=== PATIENT | male | born 1990 | race Caucasian/White ===

== ENCOUNTER 2018-10-07 20:13 | Emergency (ER) | payer MEDICAID ==
[~2018-10-07] VITALS: Ht 182.9 cm; Wt 67.0 kg
[~2018-10-07 20:13] MED LIST: HYDR-3653 PO
[2018-10-07 20:17] VITALS: BP_SYST 137
--- NOTE | 2018-10-07 21:47 | NUR ---
PT ABLE TO STAND AT BEDSIDE AND URINATE AND GET BACK INTO BED. PT ALSO ABLE TO PULL UP HIS PANTS AND BUCKLE THEM.
--- NOTE | 2018-10-07 23:15 | NUR ---
PT ABLE TO WALK WITH A SMOOTH STEADY GATE TO THE DC DESK.
== END 2018-10-07 23:17 | disposition home or self-care (01) ==
LOC: ED 21:24
DX: F10.120 Alcohol abuse with intoxication, uncomplicated (principal); Y90.9 Presence of alcohol in blood, level not specified
CPT/HCPCS: 99283

== ENCOUNTER 2020-04-18 16:35 | Emergency (ER) | payer MEDICAID ==
[~2020-04-18] VITALS: Ht 182.9 cm; Wt 68.3 kg
[2020-04-18 16:40] VITALS: BP 120/83
== END 2020-04-18 18:21 | disposition home or self-care (01) ==
LOC: ED 17:45
DX: S83.422A Sprain of lateral collateral ligament of left knee, initial encounter (principal); F17.200 Nicotine dependence, unspecified, uncomplicated; W19.XXXA Unspecified fall, initial encounter; Y93.89 Activity, other specified; Y92.89 Other specified places as the place of occurrence of the external cause; Y99.8 Other external cause status
CPT/HCPCS: 29505; 99283